=== PATIENT | male | born 1970 | race Caucasian/White ===

== ENCOUNTER 2021-07-30 12:52 | Emergency (ER) | payer OTHER ==
[~2021-07-30] VITALS: Ht 165.1 cm; Wt 114.0 kg
[2021-07-30] MEDS ORDERED: [UNRECOGNIZED DRUG - REMARK] (13:32)
[2021-07-30] MEDS ORDERED: CLOT15CR5 TP (14:17)
[2021-07-30 14:38] VITALS: BP 148/89
== END 2021-07-30 14:42 | disposition home or self-care (01) ==
LOC: ER 14:14
DX: N47.1 Phimosis (principal); R03.0 Elevated blood-pressure reading, without diagnosis of hypertension
CPT/HCPCS: 99282